=== PATIENT | male | born 1980 | race Caucasian/White ===

== ENCOUNTER 2021-08-26 12:30 | Emergency (ER) | payer SELFPAY ==
--- NOTE | 2021-08-26 12:48 | XR_ITS ---
WS: [id number] 2 views of the left fifth finger, 08/26/2021 Clinical Data: trauma Comparison: None. Findings: There is a comminuted fracture of the distal aspect of the left fifth finger proximal phalanx. Soft t issue injury is also present. XR/XR finger LT min 2V [id number] Impression: Comminuted fracture of the distal left fifth finger proximal phalanx.
[2021-08-26 13:04] VITALS: BP 136/90; PULSE 86; RESP 16; TEMP 36.4; O2SAT 96; BMI 29.2
--- NOTE | 2021-08-26 13:08 | W.ED.UPPEXIN ---
HPI - Extremity Injury (Upper) General: Chief Complaint: Wound/Laceration Stated Complaint: trauma: chainsaw to L little finger Time Seen by Provider: 08/26/21 13:04 Source: patient Mode of arrival: ambulatory Limitations: no limitations History of Present Illness: HPI narrative: Patient is a 40-year-old male here for concerns of a left pinky finger laceration that he sustained just prior to arrival while using a saw blade. Last tetanus was approximately 12 years ago. complaint: injury to: left and finger Onset (ago): hour(s) Other Extremity Injury: Left: fingers Other injuries: none Place: home Severity: moderate Relieving factors: immobilization Exacerbating factors: movement of extremity Context: laceration Associated symptoms: Reports no associated symptoms Review of Systems Musc: Reports: extremity pain (L 5th finger) Skin/Breast: Reports: other (laceration L 5th finger) Neuro: Reports: sensory changes (reports numbness to finger) Physical Exam Const: COMMON NORMALS: no acute distress, average body habitus, patient oriented x3, no limitations, healthy appearing, alert and well nourished Extremity: GENERAL: Yes normal exam except as noted OTHER: pt has a large irregular laceration to lateral aspect of L 5th finger mainly overlying proximal phalanx; bony crepitus noted; patient has decreased ability to flex PIP Neuro: COMMON NORMALS: patient oriented x3 SENSORIUM/ORIENTATION: Yes alert Course Consultations: Consultation #1: Dr. Jha-sunitha parisi and will see in office Vital Signs: Vital signs: Vital Signs Temperature 97.6 F 08/26/21 13:04 Pulse Rate 86 08/26/21 13:17 Respiratory Rate 16 08/26/21 13:17 Blood Pressure 128/88 08/26/21 13:17 Pulse Oximetry 96 08/26/21 13:17 MDM - Extremity Injury (Upper) MDM Narrative: Medical decision making narrative: Patient with an open fracture to L 5th finger proximal phalanx. Spoke to Dr. Jha/hand surgery and sent her photos of patient's XRs. She recommended/agreed with irrigation, tetanus, abx, loose closure, splint, and she will see in office. CM calling their office now to help arrange this appointment. Return to ED precautions given. He was given IM ancef here prior to DC. Imaging Data^: XR L finger: Radiologist's impression: [address] [address] XRay Report Signed Patient: Nathan Holguin Unit #: [id number] : 1980 Age/Sex: 40 / M ADM Date: 08/26/21 Loc: ER Room/Bed: Attending Dr: Ordering Provider/Ordering MD: Chrissie Hernandez Date of Service: 08/26/21 Procedure(s): XR finger LT min 2V [id number] Accession Number(s): [id number] Report Number: [id number] WS: [id number] 2 views of the left fifth finger, 08/26/2021 Clinical Data: trauma Comparison: None. Findings: There is a comminuted fracture of the distal aspect of the left fifth finger proximal phalanx. Soft tissue injury is also present. XR/XR finger LT min 2V [id number] Impression: Comminuted fracture of the distal left fifth finger proximal phalanx. Dictated By: Elzbieta Castaneda MD Signed By: Elzbieta Castaneda MD Signed Date/Time: 08/26/211316 DD/ 131 Discharge Plan Discharge Patient Disposition: Home Clinical Impression: Open fracture of proximal phalanx of digit of left hand Condition: Stable Prescriptions: New hydrocodone-acetaminophen 5-325 mg tablet 1 tab PO Q6H PRN (Reason: pain) Qty: 14 RF: 0 cephalexin 500 mg capsule 500 mg PO Q6H 7 Days Qty: 28 RF: 0 Discharge Orders: Discharge ED (Routine); Ordered 08/26/21 Ordered By: Chrissie Hernandez Patient Instructions: Finger Fracture (ED) Activity Restrictions/Additional Instructions: As we discussed you need to fill antibiotics immediately. Keep wound clean with warm soap and water. You need to wear your splint at all times. We are having you follow-up with Dr. Jha/hand surgery at [facility] in [place]. They should be contacting you shortly to give you your appointment date and time. You need to return to the ED for uncontrollable pain, redness, swelling, purulent drainage to the incision site, red streaking up your hand and arm, fevers, or any other concerns you may have. Coding Level of Care Code ED Corporate Wellness Coordinator for Chg Fwd Exam Expanded Problem Focused
[2021-08-26 13:17] VITALS: BP 128/88; PULSE 86; RESP 16; O2SAT 96
[2021-08-26] MEDS: lidocaine 2% INJ 20 mL INJECTION (13:30)
[2021-08-26] MEDS: tetanus-diphtheria tox (adult) 0.5 mL SDV IM (13:51)
[2021-08-26] MEDS: ceFAZolin 1,000 mg SDV 1000 MG IM (15:22)
--- NOTE | 2021-08-27 09:41 | DCPLANNER ---
technical publications manager was asked to schedule a follow up appointment for patient with Dr. Gutiérrez in [place]. technical publications manager faxed patients information to the office of Dr. Gutiérrez, and had patients xray uploaded to the cloud. Clinic will call patient with the appointment information.
== END 2021-08-26 15:42 | disposition home or self-care (01) ==
PROVIDERS: Emergency Provider Physician Assistant
DX: S62.617B Displaced fracture of proximal phalanx of left little finger, initial encounter for open fracture (principal); W27.0XXA Contact with workbench tool, initial encounter; Z23 Encounter for immunization
CPT/HCPCS: 73140; 90471; 90714; 96372; 99283; A6446; J0690

== ENCOUNTER 2023-05-26 14:47 | Emergency (ER) | payer SELFPAY ==
[2023-05-26 15:09] VITALS: BP 185/100; PULSE 77; RESP 16; TEMP 36.8; O2SAT 97; BMI 28.0
--- NOTE | 2023-05-26 19:37 | ED_ITS ---
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 Patient also reports some numbness in his hands 2. Patient reports he been over the road for the last 3 months and over the last month he has had increasing back pain. Patient appears nontoxic. Patient appears no acute distress. Review of Systems General: Reports: 10 or more systems reviewed and unremarkable except in HPI and below Musc: Reports: extremity pain Neuro: Reports: numbness in extremities Physical Exam Const: COMMON NORMALS: alert HENMT: COMMON NORMALS: normocephalic HEAD & SCALP: normocephalic Neck/C-Spine: CERVICAL SPINE: No Cervical spine tenderness Resp: COMMON NORMALS: normal respiratory effort and clear to auscultation bilaterally AUSCULTATION: clear to auscultation bilaterally Cardio: COMMON NORMALS: regular rate and regular rhythm RATE: regular rate RHYTHM: regular rhythm Back/Pelvis: THORACIC SPINE/UPPER BACK: No thoracic spinal tenderness LUMBAR SPINE/LOWER BACK: Yes lumbar spinal tenderness Lumbar spinal tenderness location: L5 Extremity: COMMON NORMALS: normal to inspection Neuro: SENSORIUM/ORIENTATION: Yes alert Skin: COMMON NORMALS: turgor normal GENERAL SKIN EXAM: turgor normal Course Vital Signs: Vital signs: Vital Signs Temperature 98.2 F 05/26/23 15:09 Pulse Rate 77 05/26/23 15:09 Respiratory Rate 16 05/26/23 15:09 Blood Pressure 185/100 05/26/23 15:09 Pulse Oximetry 97 05/26/23 15:09 Oxygen Delivery Me thod Room Air 05/26/23 15:09 MDM - Back Pain/Injury Medical Decision Making 42-year-old male patient comes in today for complaints of low back pain with numbness in the extremities. On exam patient has some spinal tenderness about L5-S1. No muscle tenderness is noted on palpation. Patient was all extremities well. No swelling is noted in the extremities. Vital signs are normal except for some elevated blood pressure. Differential diagnosis includes lumbar radiculopathy, intervertebral disc disease, facet arthropathy, spondylitis. X- ray of the cervical spine was normal. X-ray of the lumbar spine noted some spondylolisthesis in the low back L5-S1. Reviewed this with patient with recommendations for further evaluation and treatment with orthopedic spine. Patient reported understanding of care plan and need for follow-up or return to the ER. Discharge Plan Discharge Patient Disposition: Home Clinical Impression: Lumbar radiculopathy, Spondylolisthesis at L5-S1 level Condition: Stable Prescriptions: No Action hydrocodone-acetaminophen 5-325 mg tablet 1 tab PO Q6H PRN (Reason: pain) Qty: 14 0RF Discharge Orders: Discharge ED (Routine); Ordered 05/26/23 Ordered By: Frank Esquivel Discharge Diet: Usual diet Discharge Activity: Increase activity as tolerated Patient Instructions: DASH Eating Plan (ED), Back Pain (ED) Activity Restrictions/Additional Instructions: Activity as tolerated. Gentle stretching and range of motion exercises. Use acetaminophen and ibuprofen for pain. Drink plenty of water with medication. Follow-up with orthopedic exercise equipment specialist for further evaluation and treatment. Return to ER for new concerns or worsening symptoms. Coding Level of Care Code ED Crate Tier for Yvette Saenz
--- NOTE | 2023-05-26 19:42 | XRR_ITS ---
PROCEDURE INFORMATION: Exam: XR Lumbosacral Spine Exam date and time: 05/26/2023 8:08 PM Age: 42 years old Clinical indication: Low back pain TECHNIQUE: Imaging protocol: Radiologic exam of the lumbosacral spine. Views: 2 or 3 views. COMPARISON: No relevant prior studies available. FINDINGS: Bones/joints: Moderate L5-S1 degenerative disc disease and spondylosis. Mild anterior L1-L2 spondylosis and degenerative disc disease. Soft tissues: Unremarkable. XR/XR lumbar spine 2-3V* [id number] IMPRESSION: 1. Moderate L5-S1 degenerative disc disease and spondylosis. 2. Mild anterior L1-L2 spondylosis and degenerative disc disease.
--- NOTE | 2023-05-26 19:42 | XRR_ITS ---
PROCEDURE INFORMATION: Exam: XR Cervical Spine Exam date and time: 05/26/2023 8:00 PM Age: 42 years old Clinical indication: Pain; Cervicalgia; Additional info: Neck pain TECHNIQUE: Imaging protocol: Radiologic exam of the cervical spine. Views: 2 or 3 views. COMPARISON: No relevant prior studies available. FINDINGS: Bones/joints: 5 mm metallic BB in the soft tissues lateral to the mandibular angle. Soft tissues: Unremarkable. XR/XR cervical spine 3V* [id number] IMPRESSION: 5 mm metallic BB in the soft tissues lateral to the mandibular angle.
[2023-05-26 20:35] LABS: Glucose Point of Care 87 mg/dL (70-110)
[2023-05-26 20:50] VITALS: BP 165/98; PULSE 69; RESP 18; O2SAT 97
--- NOTE | 2023-05-29 08:44 | DCPLANNER ---
Addendum entered by Iesha Conroy 06/16/23 10:56: Patient did attend this appointment with ortho Addendum entered by Iesha Conroy 05/31/23 11:38: Patient has a follow up appointment scheduled for Tuesday, June 06, 2023 at 2:00 with Joo Lambert at ortho. Original Note: global sales manager had message to schedule a follow up appointment for patient with ortho. global sales manager sent patients information to the front office staff at ortho. Patients information will be printed and reviewed. Clinic will call patient with appointment information.
== END 2023-05-26 20:52 | disposition home or self-care (01) ==
PROVIDERS: Emergency Provider Nurse Practitioner Family
DX: M54.16 Radiculopathy, lumbar region (principal); M43.17 Spondylolisthesis, lumbosacral region
CPT/HCPCS: 36416; 72040; 72100; 82962; 99284

== ENCOUNTER → 2023-06-06 13:50 | Outpatient (BNVA) | payer SELFPAY | PROVIDERS: Referring Provider Nurse Practitioner Family; Visit Provider Physician Assistant | DX: M51.36 Other intervertebral disc degeneration, lumbar region (principal) | CPT/HCPCS: 72110 ==

== ENCOUNTER 2024-01-17 14:18 | Outpatient (CLI) | payer OTHER, SELFPAY ==
--- NOTE | 2024-01-17 14:29 | XR_ITS ---
WS: [id number] Examination: XR shoulder LT min 2V* [id number] Reason for Exam: L SHOULDER PAIN Date: January 17, 2024 Comparison: February 25, 2014 Findings: The bone density is maintained. There is no destruction There is no displaced fracture. There is noted to location The AC joint is intact on these nonstress views Impression: No fracture or dislocation is appreciated.
== END 2024-01-17 14:19 | disposition home or self-care (01) ==
LOC: RAD 14:23
PROVIDERS: PCP Nurse Practitioner Family; Visit Provider Nurse Practitioner Family
DX: M25.512 Pain in left shoulder (principal)
CPT/HCPCS: 73030

== ENCOUNTER 2024-02-29 12:53 | Outpatient (CLI) | payer OTHER, SELFPAY ==
--- NOTE | 2024-02-29 12:59 | XR_ITS ---
WS: [id number] Lumbar spine, 3 views, 02/29/2024 Clinical Data: LOW BACK PAIN Comparison: Lumbar spine, 06/06/2023 Findings: No compression fractures or subluxation is seen. There is disc narrowing at L5-S1. Small osteophytes are present at L4 and L5. The transverse processes and SI joints are normal. XR/XR lumbar spine 2-3V* [id number] Impression: 1. Degenerative disc narrowing at L5-S1. 2. Mild osteoarthritis L4-L5.
== END 2024-02-29 12:54 | disposition home or self-care (01) ==
PROVIDERS: PCP Nurse Practitioner Family; Visit Provider Nurse Practitioner Family
DX: M47.896 Other spondylosis, lumbar region (principal); M48.07 Spinal stenosis, lumbosacral region
CPT/HCPCS: 72100

== ENCOUNTER 2025-04-25 10:41 | Outpatient (CLI) | payer SELFPAY ==
--- NOTE | 2025-04-25 10:57 | MR_ITS ---
WS: [id number] MRI of the pelvis without gadolinium enhancement INDICATION: Chronic low back pain. Pelvic pain. TECHNIQUE: Axial T1, axial T2, coronal T1, coronal T2, coronal STIR, and sagittal T2 imaging FINDINGS: Normal bone marrow signal in the pelvis and sacrum. Normal bone marrow signal in the femoral heads bilaterally. No evidence of avascular necrosis. No significant joint effusions. No sacral insufficiency fractures. Mild disc bulging L4-L5 and L5-S1. Normal bone marrow signal in the sacrum and distal coccyx. Normal sacrococcygeal junction. Tiny fat-containing umbilical hernia. Sigmoid diverticulosis. No inguinal lymphadenopathy. MR/MR pelvis wo con* [id number] IMPRESSION: No acute sacral findings.
--- NOTE | 2025-04-25 10:57 | MR_ITS ---
WS: [id number] MRI LUMBAR SPINE NONCONTRAST TECHNIQUE: Sagittal T1, T2 and STIR imaging. Axial T1 and T2 imaging. CLINICAL INFORMATION: LOW BACK PAIN/PERINEAL PAIN COMPARISON: 2014 FINDINGS: Mild lumbar curve. No acute compression. Disc desiccation worse at L5-S1. This is progressed compared to 2014. L1-L2: Mild annular bulging. Impingement RIGHT subarticular recess and traversing RIGHT L2 nerve root. Mild facet arthropathy. Foramen are patent. L2-L3: Moderate facet arthropathy. Small RIGHT foraminal protrusion with mild RIGHT foraminal narrowing. Narrowing of the RIGHT subarticular recess. This is new compared to previous. LEFT foramen is patent. L3-L4: Mild annular bulging. Slight effacement of the ventral thecal sac. Mild facet arthropathy. Tiny bilateral foraminal protrusions with mild RIGHT greater than LEFT foraminal narrowing. This is progressed compared to previous. L4-L5: Mild annular bulging. Shallow central protrusion with a small annular tear. Impingement on the subarticular recess and traversing L5 nerve roots. Moderate facet arthropathy. Mild central canal stenosis. Foramen are patent. L5-S1: Shallow RIGHT subarticular protrusion impinges the traversing RIGHT S1 nerve root in the subarticular recess. Recommend correlation RIGHT S1 nerve root symptoms. Mild central canal stenosis. This is similar in appearance to 2014. Mild RIGHT foraminal narrowing. Moderate facet arthropathy. Visualized pelvic bony structures: Normal. Paravertebral soft tissues: Normal. MR/MR lumbar spine wo con* [id number] IMPRESSION: 1. Mild lumbar curve. No acute compression. 2. Central disc protrusion L4-5 with mild central canal stenosis. Impingement of traversing L5 nerve roots with a small annular tear. This is stable since 20 14. Impingement of traversing L5 nerve roots bilaterally. 3. Small RIGHT foraminal protrusion L2-3 impinges the RIGHT subarticular reces s and exiting RIGHT L2 nerve root. This appears new from previous. 4. Small bilateral foraminal protrusions L3-4 RIGHT greater than LEFT progress ed compared to previous 5. Prominent RIGHT subarticular protrusion L5-S1 impinges the traversing RIGHT S1 nerve root in the subarticular recess. Recommend correlation RIGHT S1 nerve root symptoms. Mild RIGHT foraminal narrowing. This appears stable compared to previous. 6. Disc bulging L1-2 with impingement on the RIGHT subarticular recess was pre sent previously and appears slightly progressed
== END 2025-04-25 10:42 | disposition home or self-care (01) ==
LOC: RAD 10:43
PROVIDERS: PCP Nurse Practitioner Adult Health; Visit Provider Nurse Practitioner Adult Health
DX: K57.30 Diverticulosis of large intestine without perforation or abscess without bleeding (principal); K42.9 Umbilical hernia without obstruction or gangrene; M51.26 Other intervertebral disc displacement, lumbar region; M48.062 Spinal stenosis, lumbar region with neurogenic claudication
CPT/HCPCS: 72148; 72195

== ENCOUNTER → 2025-05-22 14:00 | Outpatient (BNVA) | payer SELFPAY | PROVIDERS: PCP Nurse Practitioner Adult Health; Visit Provider Orthopaedic Surgery | DX: M47.816 Spondylosis without myelopathy or radiculopathy, lumbar region (principal); M53.3 Sacrococcygeal disorders, not elsewhere classified; M54.50 Low back pain, unspecified; M54.9 Dorsalgia, unspecified | CPT/HCPCS: 72110 ==